=== PATIENT | female | born 1970 | race Caucasian/White ===

== ENCOUNTER → 2021-11-21 | Outpatient (CLI) | payer OTHER | LOC: MAMMO 09:14 | PROVIDERS: ATTEND Nurse Practitioner Adult Health | DX: N63.12 Unspecified lump in the right breast, upper inner quadrant (principal) | CPT/HCPCS: 77066 ==

== ENCOUNTER → 2021-11-28 | Outpatient (CLI) | payer OTHER ==
[~2021-11-28] MED LIST: LIDOCAINE HCL 1% LOCAL INJ 20 ML VIAL ONE
== END ==
LOC: US 09:29
PROVIDERS: ATTEND Internal Medicine
DX: N63.10 Unspecified lump in the right breast, unspecified quadrant (principal)
CPT/HCPCS: 88305; A4648; J2001

== ENCOUNTER → 2022-03-03 | Outpatient (CLI) | payer OTHER | LOC: RAD 11:06 | PROVIDERS: ATTEND Internal Medicine | DX: R05.9 Cough, unspecified (principal) | CPT/HCPCS: 71046 ==

== ENCOUNTER 2023-03-15 19:37 | Inpatient (IN) | payer OTHER ==
[~2023-03-15] VITALS: Ht 157.5 cm; Wt 94.8 kg
[2023-03-15] MEDS ORDERED: ACETAMINOPHEN 325 MG TAB PO ONE (20:00)
[2023-03-15] MEDS ORDERED: SODIUM CHLORIDE 0.9% 1000ML 1,000 ML IV ONE (20:00)
[2023-03-15 20:22] LABS: BASOPHILS % 0.2 % (0.0-1.0); EOSINOPHILS % 0.1 % (0.0-6.0); HEMOGLOBIN 8.4 g/dL (12.0-16.0); LYMPHOCYTES # (AUTO) 1.9 (1.0-3.2); LYMPHOCYTES % 18.3 % (18.0-39.1); MEAN CORPUSCULAR HEMOGLOBIN 24.2 pg (28-32); MEAN CORPUSCULAR VOLUME 80.7 fL (81-99); MONOCYTES % 10.1 % (4.4-11.3); NEUTROPHILS # (AUTO) 7.3 (2.1-6.9); NEUTROPHILS % 70.8 % (38.7-80.0); PLATELET COUNT 494 x10e3/uL (140-360); RED BLOOD COUNT 3.47 x10e6/uL (3.6-5.1); RED CELL DISTRIBUTION WIDTH 14.2 % (11.7-14.4)
[2023-03-15 20:38] LABS: ALBUMIN 2.2 g/dL (3.5-5.0); ALBUMIN/GLOBULIN RATIO 0.4 (0.8-2.0); ANION GAP 16.3 mmol/L (8-16); CALCIUM 9.3 mg/dL (8.4-10.2); CREATININE, SERUM 1.01 mg/dL (0.57-1.11); POTASSIUM 3.3 mmol/L (3.5-5.1)
[2023-03-15] MEDS ORDERED: IOPAMIDOL 370 MG/ML 100 ML INFUS..BTL INJ ONE (22:16)
[2023-03-15] MEDS: SODIUM CHLORIDE 0.9% 1000ML 1,000 ML IV SCH (23:15)
[2023-03-16] VITALS (16 sets, daily range): BP systolic 104–137; BP diastolic 57–85; PULSE 105–144; RESP 16–24; TEMP 97–101.3; O2SAT 90–100
[2023-03-16] MEDS: ALBUTEROL SULF 0.083% NEB SOLN 3 ML NEB NEB SCH ×4 (01:40→15:00)
[2023-03-16] MEDS: IPRATROPIUM BROMIDE 0.02% 2.5 ML NEB NEB SCH ×4 (01:40→15:00)
[2023-03-16 02:12] LABS: CLARITY,URINE CLOUDY (CLEAR); COLOR,URINE YELLOW (YELLOW); LEUKOCYTE ESTERASE ,URINE SMALL (NEGATIVE); NITRITE,URINE NEGATIVE (NEGATIVE)
[2023-03-16 02:13] LABS: KETONES,URINE NEGATIVE (NEGATIVE); PROTEIN,URINE DIPSTICK TRACE (NEGATIVE); URINE UROBILINOGEN 0.2 mg/dL (0.2 - 1)
[2023-03-16 02:18] LABS: BACTERIA,URINE MANY /HPF; EPITHELIAL CELLS,URINE MANY /LPF; RBC,URINE 21-50 /HPF (0-5); RENAL EPITHELIAL CELLS,URINE FEW; TRANSITIONAL EPI CELLS,URINE MANY; WBC,URINE (MAN) >50 /HPF (0-5)
[2023-03-16] MEDS: SODIUM CHLORIDE 0.9% 1000ML 1,000 ML IV SCH ×2 (07:15→12:53)
[2023-03-16] MEDS ORDERED: DEXTROSE 50% SYRINGE 50 ML IV PRN (07:15)
[2023-03-16 07:26] LABS: ALBUMIN/GLOBULIN RATIO 0.4 (0.8-2.0); ANION GAP 16.2 mmol/L (8-16); CALCIUM 8.8 mg/dL (8.4-10.2); CREATININE, SERUM 0.88 mg/dL (0.57-1.11); POTASSIUM 3.2 mmol/L (3.5-5.1)
[2023-03-16] MEDS: INSULIN LISPRO 100 UNIT/1 ML 3ML VIAL SQ SCH ×3 (07:30→16:30)
[2023-03-16] MEDS: PANTOPRAZOLE SOD 40 MG TABEC PO SCH ×2 (07:30→15:08)
[2023-03-16] MEDS ORDERED: ONDANSETRON HCL4 MG PO (08:20)
[2023-03-16] MEDS ORDERED: METOPROLOL TAR100 MG PO (08:20)
[2023-03-16] MEDS ORDERED: ZOLPIDEM PO (08:20)
[2023-03-16] MEDS ORDERED: GABAPENTIN300 MG PO (08:20)
[2023-03-16] MEDS ORDERED: AMBIEN10 MG PO (08:20)
[2023-03-16] MEDS ORDERED: ALPRAZOLAM1 MG PO (08:20)
[2023-03-16] MEDS ORDERED: ACETAMINOPHEN/CODEINE 300MG - 30MG TAB PO PRN (11:00)
[2023-03-16] MEDS: HYDROCODONE/APAP 5MG-325MG TAB PO PRN ×2 (11:02→21:08)
[2023-03-16] MEDS: POTASSIUM CHLORIDE 20 MEQ TAB CR PO PRN (12:51)
[2023-03-16] MEDS: CELECOXIB 100 MG CAP PO SCH (12:51)
[2023-03-16] MEDS ORDERED: LEVALBUTEROL HCL SOLN NEBU 0.63 MG/3 ML NEB INH PRN (17:45)
[2023-03-16] MEDS ORDERED: HEPARIN SOD (PORCINE) 5,000 UNIT/ML VIAL SC SCH (21:00)
[2023-03-16] MEDS ORDERED: INSULIN GLARGINE 100 UNITS/ML VIAL SQ SCH (21:00)
[2023-03-17] VITALS (51 sets, daily range): BP systolic 91–155; BP diastolic 53–104; PULSE 33–188; RESP 18–42; TEMP 97.7–102.5; O2SAT 92–100
[2023-03-17] MEDS: SODIUM CHLORIDE 0.9% 1000ML 1,000 ML IV SCH ×2 (02:20→22:22)
[2023-03-17] MEDS: INSULIN LISPRO 100 UNIT/1 ML 3ML VIAL SQ SCH ×5 (05:07→21:36)
[2023-03-17 05:21] LABS: BASOPHILS % 0.4 % (0.0-1.0); EOSINOPHILS # (AUTO) 0.1 (0.0-0.4); EOSINOPHILS % 1.8 % (0.0-6.0); HEMATOCRIT 22.9 % (34.2-44.1); LYMPHOCYTES # (AUTO) 1.4 (1.0-3.2); LYMPHOCYTES % 25.9 % (18.0-39.1); MEAN CORPUSCULAR HEMOGLOBIN 24.1 pg (28-32); MEAN CORPUSCULAR HGB CONC 28.8 g/dL (31-35); MEAN CORPUSCULAR VOLUME 83.6 fL (81-99); MONOCYTES # (AUTO) 0.6 (0.2-0.8); MONOCYTES % 10.2 % (4.4-11.3); NEUTROPHILS # (AUTO) 3.4 (2.1-6.9); NEUTROPHILS % 61.2 % (38.7-80.0); PLATELET COUNT 517 x10e3/uL (140-360); RED BLOOD COUNT 2.74 x10e6/uL (3.6-5.1); RED CELL DISTRIBUTION WIDTH 14.6 % (11.7-14.4)
[2023-03-17 05:39] LABS: HEMOGLOBIN 6.6 g/dL (12.0-16.0)
[2023-03-17 05:54] LABS: ANION GAP 12.4 mmol/L (8-16); CREATININE, SERUM 0.77 mg/dL (0.57-1.11); POTASSIUM 3.4 mmol/L (3.5-5.1)
[2023-03-17] MEDS ORDERED: SODIUM CHLORIDE 0.9% 250ML 250 ML IV ONE (06:30)
[2023-03-17] MEDS ORDERED: DIGOXIN INJ 0.25 MG/ML 2 ML AMP IV ONE ×2 (07:00→08:30)
[2023-03-17] MEDS ORDERED: AMIODARONE HCL 150 MG/100 ML BAG IV ONE (08:30)
[2023-03-17] MEDS ORDERED: AMIODARONE 900MG 500 ML IV SCH (08:40)
[2023-03-17] MEDS: PANTOPRAZOLE SOD 40 MG TABEC PO SCH (08:45)
[2023-03-17] MEDS: CELECOXIB 100 MG CAP PO SCH (08:45)
[2023-03-17] MEDS: HYDROCODONE/APAP 5MG-325MG TAB PO PRN ×2 (08:53→15:36)
[2023-03-17] MEDS: ALPRAZOLAM 1 MG TAB PO PRN ×2 (09:09→21:44)
[2023-03-17] MEDS: ENOXAPARIN SODIUM INJ 100 MG/ML SYR SC SCH ×2 (10:34→21:32)
[2023-03-17] MEDS ORDERED: METOCLOPRAMIDE HCL 10 MG/2ML VIAL ONE (12:51)
[2023-03-17] MEDS ORDERED: PROPOFOL IV EMULSION 10 MG/ML 20 ML VIAL ONE (12:51)
[2023-03-17] MEDS ORDERED: LIDOCAINE HCL 2% LOCAL INJ 5 ML SDV VIAL INJ ONE (12:51)
[2023-03-17] MEDS ORDERED: FENTANYL CITRATE/PF 100MCG/2 ML INJ ONE (13:16)
[2023-03-17] MEDS: POTASSIUM CHLORIDE 20 MEQ TAB CR PO PRN (13:27)
[2023-03-17] MEDS ORDERED: SODIUM CHLORIDE 0.9% 250ML 250 ML ONE (13:57)
[2023-03-17] MEDS: INSULIN GLARGINE 100 UNITS/ML VIAL SQ SCH (21:37)
[2023-03-17 22:07] LABS: HEMOGLOBIN 10.3 g/dL (12.0-16.0)
[2023-03-17] MEDS: ACETAMINOPHEN 325 MG TAB PO PRN (22:52)
[2023-03-18] VITALS (75 sets, daily range): BP systolic 99–182; BP diastolic 55–121; PULSE 91–127; RESP 15–52; TEMP 97.8–102.3; O2SAT 92–100
[2023-03-18 00:21] LABS: TOTAL IRON BINDING CAPACITY 214 ug/dL (261-478); TRANSFERRIN 153 mg/dL (180-382)
[2023-03-18 01:16] LABS: % IRON SATURATION 7 % (15-50); IRON 15 ug/dL (50-170)
[2023-03-18] MEDS: ACETAMINOPHEN 325 MG TAB PO PRN ×3 (03:06→23:56)
[2023-03-18] MEDS: HYDROCODONE/APAP 5MG-325MG TAB PO PRN ×2 (05:43→20:22)
[2023-03-18 06:28] LABS: BASOPHILS % 0.3 % (0.0-1.0); EOSINOPHILS # (AUTO) 0.1 (0.0-0.4); EOSINOPHILS % 0.8 % (0.0-6.0); HEMATOCRIT 32.1 % (34.2-44.1); LYMPHOCYTES # (AUTO) 1.2 (1.0-3.2); LYMPHOCYTES % 15.5 % (18.0-39.1); MEAN CORPUSCULAR HEMOGLOBIN 25.7 pg (28-32); MEAN CORPUSCULAR HGB CONC 31.2 g/dL (31-35); MEAN CORPUSCULAR VOLUME 82.5 fL (81-99); MONOCYTES # (AUTO) 0.7 (0.2-0.8); NEUTROPHILS # (AUTO) 5.7 (2.1-6.9); PLATELET COUNT 429 x10e3/uL (140-360); RED BLOOD COUNT 3.89 x10e6/uL (3.6-5.1); RED CELL DISTRIBUTION WIDTH 15.2 % (11.7-14.4)
[2023-03-18 06:43] LABS: INR 1.15; PROTHROMBIN TIME 15.2 seconds (11.9-14.5)
[2023-03-18 06:44] LABS: PARTIAL THROMBOPLASTIN TIME 46.8 seconds (23.8-35.5)
[2023-03-18 06:52] LABS: ANION GAP 12.6 mmol/L (8-16); CALCIUM 8.1 mg/dL (8.4-10.2); CREATININE, SERUM 0.88 mg/dL (0.57-1.11); POTASSIUM 3.6 mmol/L (3.5-5.1)
[2023-03-18] MEDS: INSULIN LISPRO 100 UNIT/1 ML 3ML VIAL SQ SCH ×4 (07:30→20:37)
[2023-03-18] MEDS: SODIUM CHLORIDE 0.9% 1000ML 1,000 ML IV SCH ×3 (08:20→18:20)
[2023-03-18] MEDS: ENOXAPARIN SODIUM INJ 100 MG/ML SYR SC SCH ×2 (09:00→20:21)
[2023-03-18] MEDS: AMIODARONE HCL 200 MG TAB PO SCH (10:33)
[2023-03-18] MEDS: IRON SUCROSE 100 MG in SODIUM CHLORIDE 0.9% 100 ML IV SCH (10:48)
[2023-03-18] MEDS: ALPRAZOLAM 1 MG TAB PO PRN ×2 (15:54→23:22)
[2023-03-18] MEDS: SUCRALFATE 1 GM TAB PO SCH ×2 (20:22→21:00)
[2023-03-18] MEDS: INSULIN GLARGINE 100 UNITS/ML VIAL SQ SCH (20:34)
[2023-03-19] VITALS (27 sets, daily range): BP systolic 102–167; BP diastolic 59–89; PULSE 94–123; RESP 15–42; TEMP 98.8–102.3; O2SAT 93–100
[2023-03-19] MEDS: HYDROCODONE/APAP 5MG-325MG TAB PO PRN ×2 (03:40→10:05)
[2023-03-19] MEDS: SODIUM CHLORIDE 0.9% 1000ML 1,000 ML IV SCH (05:04)
[2023-03-19] MEDS: INSULIN LISPRO 100 UNIT/1 ML 3ML VIAL SQ SCH ×4 (07:30→20:12)
[2023-03-19] MEDS: SUCRALFATE 1 GM TAB PO SCH ×4 (08:24→20:00)
[2023-03-19 08:32] LABS: BASOPHILS % 0.4 % (0.0-1.0); EOSINOPHILS # (AUTO) 0.1 (0.0-0.4); EOSINOPHILS % 0.7 % (0.0-6.0); HEMATOCRIT 34.4 % (34.2-44.1); HEMOGLOBIN 10.2 g/dL (12.0-16.0); LYMPHOCYTES # (AUTO) 1.5 (1.0-3.2); LYMPHOCYTES % 14.7 % (18.0-39.1); MEAN CORPUSCULAR HEMOGLOBIN 25.2 pg (28-32); MEAN CORPUSCULAR HGB CONC 29.7 g/dL (31-35); MEAN CORPUSCULAR VOLUME 84.9 fL (81-99); MONOCYTES % 9.1 % (4.4-11.3); NEUTROPHILS # (AUTO) 7.7 (2.1-6.9); NEUTROPHILS % 74.4 % (38.7-80.0); PLATELET COUNT 506 x10e3/uL (140-360); RED BLOOD COUNT 4.05 x10e6/uL (3.6-5.1); RED CELL DISTRIBUTION WIDTH 15.7 % (11.7-14.4)
[2023-03-19 08:52] LABS: ANION GAP 14.1 mmol/L (8-16); BLOOD UREA NITROGEN < 5 mg/dL (7-26); CALCIUM 8.6 mg/dL (8.4-10.2); CARBON DIOXIDE 25 mmol/L (22-29); CHLORIDE 104 mmol/L (98-107); CREATININE, SERUM 0.66 mg/dL (0.57-1.11); GLUCOSE 87 mg/dL (74-118); POTASSIUM 3.1 mmol/L (3.5-5.1); SODIUM 140 mmol/L (136-145)
[2023-03-19 08:55] LABS: BUN/CREATININE RATIO 8 (6-25)
[2023-03-19] MEDS: IRON SUCROSE 100 MG in SODIUM CHLORIDE 0.9% 100 ML IV SCH (09:46)
[2023-03-19] MEDS: AMIODARONE HCL 200 MG TAB PO SCH (09:46)
[2023-03-19] MEDS: ENOXAPARIN SODIUM INJ 100 MG/ML SYR SC SCH (09:46)
[2023-03-19] MEDS: ALPRAZOLAM 1 MG TAB PO PRN ×2 (10:40→20:01)
[2023-03-19] MEDS: POTASSIUM CHLORIDE 20 MEQ TAB CR PO PRN (10:47)
[2023-03-19] MEDS ORDERED: METOPROLOL TARTRATE 25 MG TAB PO SCH ×2 (11:45→17:45)
[2023-03-19] MEDS ORDERED: POTASSIUM CHLORIDE 10MEQ EA PO ONE (15:00)
[2023-03-19] MEDS: HYDROCODONE/APAP 7.5MG-325MG 1 EA TAB PO PRN ×2 (15:52→20:00)
[2023-03-19] MEDS ORDERED: FUROSEMIDE INJ 10 MG/ML 4 ML VIAL IV ONE (16:00)
[2023-03-19] MEDS: Clindamycin INJ 300 MG/50 ML 50 ML IV SCH ×2 (16:57→20:02)
[2023-03-19] MEDS: ACETAMINOPHEN 325 MG TAB PO PRN (20:01)
[2023-03-19] MEDS: INSULIN GLARGINE 100 UNITS/ML VIAL SQ SCH (20:11)
[2023-03-20] VITALS (19 sets, daily range): BP systolic 108–156; BP diastolic 54–87; PULSE 93–136; RESP 18–30; TEMP 99.3–102.4; O2SAT 93–100
[2023-03-20] MEDS: Clindamycin INJ 300 MG/50 ML 50 ML IV SCH ×3 (04:09→16:28)
[2023-03-20] MEDS: HYDROCODONE/APAP 7.5MG-325MG 1 EA TAB PO PRN ×3 (04:48→21:41)
[2023-03-20] MEDS: ALPRAZOLAM 1 MG TAB PO PRN ×3 (04:48→21:37)
[2023-03-20] MEDS: INSULIN LISPRO 100 UNIT/1 ML 3ML VIAL SQ SCH ×4 (07:30→21:36)
[2023-03-20] MEDS: SUCRALFATE 1 GM TAB PO SCH ×4 (07:30→21:38)
[2023-03-20 08:05] LABS: BASOPHILS % 0.4 % (0.0-1.0); EOSINOPHILS # (AUTO) 0.1 (0.0-0.4); EOSINOPHILS % 1.1 % (0.0-6.0); HEMATOCRIT 29.7 % (34.2-44.1); HEMOGLOBIN 9.2 g/dL (12.0-16.0); LYMPHOCYTES # (AUTO) 1.1 (1.0-3.2); MEAN CORPUSCULAR VOLUME 83.9 fL (81-99); MONOCYTES # (AUTO) 1.1 (0.2-0.8); MONOCYTES % 11.7 % (4.4-11.3); NEUTROPHILS # (AUTO) 6.8 (2.1-6.9); NEUTROPHILS % 74.1 % (38.7-80.0); PLATELET COUNT 440 x10e3/uL (140-360); RED BLOOD COUNT 3.54 x10e6/uL (3.6-5.1); RED CELL DISTRIBUTION WIDTH 16.2 % (11.7-14.4)
[2023-03-20] MEDS ORDERED: LIDOCAINE HCL 1% LOCAL INJ 20 ML VIAL ONE (08:23)
[2023-03-20 08:28] LABS: ALBUMIN 1.6 g/dL (3.5-5.0); ALBUMIN/GLOBULIN RATIO 0.4 (0.8-2.0); ANION GAP 12.9 mmol/L (8-16); CALCIUM 8.4 mg/dL (8.4-10.2); CREATININE, SERUM 0.62 mg/dL (0.57-1.11); POTASSIUM 3.9 mmol/L (3.5-5.1)
[2023-03-20] MEDS: IRON SUCROSE 100 MG in SODIUM CHLORIDE 0.9% 100 ML IV SCH (08:45)
[2023-03-20] MEDS ORDERED: MIDAZOLAM HCL 2 MG/2 ML VIAL ONE (11:09)
[2023-03-20] MEDS ORDERED: FENTANYL CITRATE/PF 100MCG/2 ML INJ ONE (11:10)
[2023-03-20] MEDS ORDERED: SODIUM CHLORIDE 0.9% 250ML 250 ML ONE (11:10)
[2023-03-20] MEDS: AMIODARONE HCL 200 MG TAB PO SCH (13:08)
[2023-03-20] MEDS: METOPROLOL TARTRATE 50 MG TAB PO SCH ×2 (13:09→16:27)
[2023-03-20] MEDS: POLYETHYLENE GLYCOL 3350 17 GM PACK PO SCH (16:28)
[2023-03-20] MEDS ORDERED: FUROSEMIDE INJ 10 MG/ML 4 ML VIAL IV ONE (17:45)
[2023-03-20] MEDS: ZOLPIDEM TARTRATE 5 MG TAB PO PRN (21:37)
[2023-03-20] MEDS: INSULIN GLARGINE 100 UNITS/ML VIAL SQ SCH (21:44)
[2023-03-21] VITALS (10 sets, daily range): BP systolic 104–114; BP diastolic 59–68; PULSE 80–105; RESP 16–22; TEMP 97.9–99.6; O2SAT 94–100
[2023-03-21] MEDS: HYDROCODONE/APAP 7.5MG-325MG 1 EA TAB PO PRN ×5 (04:43→23:36)
[2023-03-21] MEDS: ALPRAZOLAM 1 MG TAB PO PRN ×2 (05:16→20:40)
[2023-03-21] MEDS: INSULIN LISPRO 100 UNIT/1 ML 3ML VIAL SQ SCH ×4 (07:30→20:52)
[2023-03-21] MEDS: POLYETHYLENE GLYCOL 3350 17 GM PACK PO SCH (09:19)
[2023-03-21] MEDS: AMIODARONE HCL 200 MG TAB PO SCH (09:19)
[2023-03-21] MEDS: METOPROLOL TARTRATE 50 MG TAB PO SCH ×2 (09:19→17:16)
[2023-03-21] MEDS: SUCRALFATE 1 GM TAB PO SCH ×4 (09:19→20:39)
[2023-03-21] MEDS ORDERED: SODIUM CHLORIDE 0.9% 100 ML ONE (09:26)
[2023-03-21] MEDS: IRON SUCROSE 100 MG in SODIUM CHLORIDE 0.9% 100 ML IV SCH (11:48)
[2023-03-21] MEDS: ENOXAPARIN INJ 80 MG/0.8 ML SYR SC SCH ×2 (11:48→20:39)
[2023-03-21] MEDS: ZOLPIDEM TARTRATE 5 MG TAB PO PRN (20:40)
[2023-03-21] MEDS: INSULIN GLARGINE 100 UNITS/ML VIAL SQ SCH (20:54)
[2023-03-22] VITALS (9 sets, daily range): BP systolic 116–156; BP diastolic 61–94; PULSE 94–122; RESP 18–22; TEMP 98–100.1; O2SAT 93–100
[2023-03-22] MEDS: HYDROCODONE/APAP 7.5MG-325MG 1 EA TAB PO PRN ×5 (04:40→20:24)
[2023-03-22] MEDS: ALPRAZOLAM 1 MG TAB PO PRN ×3 (04:52→20:24)
[2023-03-22 04:56] LABS: BASOPHILS % 0.3 % (0.0-1.0); EOSINOPHILS # (AUTO) 0.1 (0.0-0.4); EOSINOPHILS % 2.1 % (0.0-6.0); HEMATOCRIT 30.3 % (34.2-44.1); HEMOGLOBIN 8.9 g/dL (12.0-16.0); LYMPHOCYTES # (AUTO) 1.2 (1.0-3.2); LYMPHOCYTES % 19.3 % (18.0-39.1); MEAN CORPUSCULAR HGB CONC 29.4 g/dL (31-35); MEAN CORPUSCULAR VOLUME 85.1 fL (81-99); MONOCYTES # (AUTO) 0.9 (0.2-0.8); MONOCYTES % 13.8 % (4.4-11.3); NEUTROPHILS % 64.2 % (38.7-80.0); PLATELET COUNT 484 x10e3/uL (140-360); RED BLOOD COUNT 3.56 x10e6/uL (3.6-5.1); RED CELL DISTRIBUTION WIDTH 16.9 % (11.7-14.4)
[2023-03-22 05:23] LABS: ALBUMIN 1.6 g/dL (3.5-5.0); ALBUMIN/GLOBULIN RATIO 0.4 (0.8-2.0); ANION GAP 14.6 mmol/L (8-16); CALCIUM 8.1 mg/dL (8.4-10.2); CREATININE, SERUM 0.77 mg/dL (0.57-1.11); POTASSIUM 3.6 mmol/L (3.5-5.1)
[2023-03-22] MEDS: INSULIN LISPRO 100 UNIT/1 ML 3ML VIAL SQ SCH ×5 (07:30→21:00)
[2023-03-22] MEDS: POLYETHYLENE GLYCOL 3350 17 GM PACK PO SCH (08:20)
[2023-03-22] MEDS: AMIODARONE HCL 200 MG TAB PO SCH (08:20)
[2023-03-22] MEDS: ENOXAPARIN INJ 80 MG/0.8 ML SYR SC SCH ×2 (08:21→20:25)
[2023-03-22] MEDS: SUCRALFATE 1 GM TAB PO SCH ×4 (08:21→20:24)
[2023-03-22] MEDS: METOPROLOL TARTRATE 50 MG TAB PO SCH ×2 (08:21→16:59)
[2023-03-22] MEDS: IRON SUCROSE 100 MG in SODIUM CHLORIDE 0.9% 100 ML IV SCH (08:21)
[2023-03-22] MEDS: ZOLPIDEM TARTRATE 5 MG TAB PO PRN (20:25)
[2023-03-22] MEDS: INSULIN GLARGINE 100 UNITS/ML VIAL SQ SCH (20:38)
[2023-03-23] VITALS (9 sets, daily range): BP systolic 108–135; BP diastolic 56–79; PULSE 93–112; RESP 17–24; TEMP 98.8–100; O2SAT 93–100
[2023-03-23] MEDS: HYDROCODONE/APAP 7.5MG-325MG 1 EA TAB PO PRN ×5 (01:35→20:54)
[2023-03-23] MEDS: ALPRAZOLAM 1 MG TAB PO PRN ×3 (05:30→20:54)
[2023-03-23] MEDS: INSULIN LISPRO 100 UNIT/1 ML 3ML VIAL SQ SCH ×4 (07:30→20:55)
[2023-03-23] MEDS: SUCRALFATE 1 GM TAB PO SCH ×4 (08:06→20:53)
[2023-03-23] MEDS: ENOXAPARIN INJ 80 MG/0.8 ML SYR SC SCH ×2 (08:41→20:54)
[2023-03-23] MEDS: FLUCONAZOLE 100 MG TAB PO SCH (08:41)
[2023-03-23] MEDS: METOPROLOL TARTRATE 50 MG TAB PO SCH ×2 (08:42→17:03)
[2023-03-23] MEDS: POLYETHYLENE GLYCOL 3350 17 GM PACK PO SCH (08:42)
[2023-03-23] MEDS: AMIODARONE HCL 200 MG TAB PO SCH (08:42)
[2023-03-23] MEDS: ACETAMINOPHEN 325 MG TAB PO PRN (17:02)
[2023-03-23] MEDS: INSULIN GLARGINE 100 UNITS/ML VIAL SQ SCH (20:59)
[2023-03-24] VITALS (10 sets, daily range): BP systolic 109–133; BP diastolic 48–77; PULSE 93–122; RESP 20–22; TEMP 98.5–101.2; O2SAT 93–99
[2023-03-24] MEDS: HYDROCODONE/APAP 7.5MG-325MG 1 EA TAB PO PRN ×5 (02:39→20:54)
[2023-03-24 05:17] LABS: BASOPHILS % 0.4 % (0.0-1.0); EOSINOPHILS # (AUTO) 0.1 (0.0-0.4); EOSINOPHILS % 1.2 % (0.0-6.0); HEMATOCRIT 27.2 % (34.2-44.1); HEMOGLOBIN 8.1 g/dL (12.0-16.0); LYMPHOCYTES # (AUTO) 1.1 (1.0-3.2); LYMPHOCYTES % 14.7 % (18.0-39.1); MEAN CORPUSCULAR HEMOGLOBIN 25.2 pg (28-32); MEAN CORPUSCULAR HGB CONC 29.8 g/dL (31-35); MEAN CORPUSCULAR VOLUME 84.7 fL (81-99); MONOCYTES # (AUTO) 0.8 (0.2-0.8); MONOCYTES % 10.7 % (4.4-11.3); NEUTROPHILS # (AUTO) 5.5 (2.1-6.9); NEUTROPHILS % 72.2 % (38.7-80.0); PLATELET COUNT 455 x10e3/uL (140-360); RED BLOOD COUNT 3.21 x10e6/uL (3.6-5.1); RED CELL DISTRIBUTION WIDTH 16.9 % (11.7-14.4)
[2023-03-24 05:42] LABS: ALBUMIN 1.5 g/dL (3.5-5.0); ALBUMIN/GLOBULIN RATIO 0.4 (0.8-2.0); ANION GAP 16.6 mmol/L (8-16); CALCIUM 8.3 mg/dL (8.4-10.2); CREATININE, SERUM 0.71 mg/dL (0.57-1.11); MAGNESIUM 1.6 MG/DL (1.3-2.1); POTASSIUM 3.6 mmol/L (3.5-5.1)
[2023-03-24] MEDS: INSULIN LISPRO 100 UNIT/1 ML 3ML VIAL SQ SCH ×4 (07:30→20:51)
[2023-03-24] MEDS: SUCRALFATE 1 GM TAB PO SCH ×4 (08:31→20:54)
[2023-03-24] MEDS: POLYETHYLENE GLYCOL 3350 17 GM PACK PO SCH (09:00)
[2023-03-24] MEDS: FLUCONAZOLE 100 MG TAB PO SCH (09:09)
[2023-03-24] MEDS: AMIODARONE HCL 200 MG TAB PO SCH (09:09)
[2023-03-24] MEDS: ENOXAPARIN INJ 80 MG/0.8 ML SYR SC SCH ×2 (09:09→20:53)
[2023-03-24] MEDS: METOPROLOL TARTRATE 50 MG TAB PO SCH ×2 (09:10→17:01)
[2023-03-24] MEDS ORDERED: FUROSEMIDE INJ 10 MG/ML 4 ML VIAL IV ONE (13:35)
[2023-03-24] MEDS: ALPRAZOLAM 1 MG TAB PO PRN ×2 (17:12→20:54)
[2023-03-24] MEDS: ACETAMINOPHEN 325 MG TAB PO PRN (20:55)
[2023-03-24] MEDS: INSULIN GLARGINE 100 UNITS/ML VIAL SQ SCH (21:02)
[2023-03-25] VITALS (10 sets, daily range): BP systolic 106–137; BP diastolic 59–69; PULSE 16–103; RESP 18–24; TEMP 97.7–100.6; O2SAT 94–100
[2023-03-25] MEDS: HYDROCODONE/APAP 7.5MG-325MG 1 EA TAB PO PRN ×6 (01:08→21:08)
[2023-03-25 04:55] LABS: BASOPHILS % 0.3 % (0.0-1.0); EOSINOPHILS # (AUTO) 0.1 (0.0-0.4); EOSINOPHILS % 0.7 % (0.0-6.0); HEMATOCRIT 28.5 % (34.2-44.1); HEMOGLOBIN 8.2 g/dL (12.0-16.0); LYMPHOCYTES # (AUTO) 1.6 (1.0-3.2); LYMPHOCYTES % 22.9 % (18.0-39.1); MEAN CORPUSCULAR HEMOGLOBIN 25.1 pg (28-32); MEAN CORPUSCULAR HGB CONC 28.8 g/dL (31-35); MEAN CORPUSCULAR VOLUME 87.2 fL (81-99); MONOCYTES # (AUTO) 0.8 (0.2-0.8); MONOCYTES % 11.3 % (4.4-11.3); NEUTROPHILS # (AUTO) 4.5 (2.1-6.9); NEUTROPHILS % 64.1 % (38.7-80.0); PLATELET COUNT 475 x10e3/uL (140-360); RED BLOOD COUNT 3.27 x10e6/uL (3.6-5.1); RED CELL DISTRIBUTION WIDTH 16.8 % (11.7-14.4)
[2023-03-25 05:12] LABS: ALBUMIN 1.7 g/dL (3.5-5.0); ALBUMIN/GLOBULIN RATIO 0.4 (0.8-2.0); ANION GAP 14.4 mmol/L (8-16); CALCIUM 8.6 mg/dL (8.4-10.2); CREATININE, SERUM 0.74 mg/dL (0.57-1.11); POTASSIUM 3.4 mmol/L (3.5-5.1)
[2023-03-25 06:53] LABS: LYMPHOCYTES % (MANUAL) 18 % (19-48); MONOCYTES % (MANUAL) 16 % (3.4-9.0); NEUTROPHILS % (MANUAL) 63 % (40-74); PLATELET ESTIMATE ADEQUATE; PLATELET MORPHOLOGY COMMENT NORMAL; RBC MORPHOLOGY COMMENT NORMAL
[2023-03-25] MEDS: INSULIN LISPRO 100 UNIT/1 ML 3ML VIAL SQ SCH ×4 (07:30→21:19)
[2023-03-25] MEDS: SUCRALFATE 1 GM TAB PO SCH ×4 (08:30→21:08)
[2023-03-25] MEDS: ENOXAPARIN INJ 80 MG/0.8 ML SYR SC SCH ×2 (09:00→21:09)
[2023-03-25] MEDS: IRON-VITAMIN-MINERAL CAPSULE PO SCH ×2 (09:00→17:46)
[2023-03-25] MEDS: POLYETHYLENE GLYCOL 3350 17 GM PACK PO SCH (09:00)
[2023-03-25] MEDS: FLUCONAZOLE 100 MG TAB PO SCH (09:44)
[2023-03-25] MEDS: AMIODARONE HCL 200 MG TAB PO SCH (09:48)
[2023-03-25] MEDS: METOPROLOL TARTRATE 50 MG TAB PO SCH ×2 (09:49→17:45)
[2023-03-25] MEDS: ALPRAZOLAM 1 MG TAB PO PRN ×2 (11:02→17:45)
[2023-03-25] MEDS: INSULIN GLARGINE 100 UNITS/ML VIAL SQ SCH (21:19)
[2023-03-25] MEDS: ACETAMINOPHEN 325 MG TAB PO PRN (23:53)
[2023-03-26] VITALS: BP 118/61; PULSE 99; RESP 17; TEMP 101.1; O2SAT 96
[2023-03-26] MEDS: HYDROCODONE/APAP 7.5MG-325MG 1 EA TAB PO PRN (03:08)
[2023-03-26 04:00] VITALS: BP 128/65; PULSE 60; RESP 18; TEMP 98.6; O2SAT 95
[2023-03-26 04:51] LABS: BASOPHILS % 0.4 % (0.0-1.0); EOSINOPHILS # (AUTO) 0.1 (0.0-0.4); EOSINOPHILS % 1.3 % (0.0-6.0); HEMATOCRIT 27.5 % (34.2-44.1); LYMPHOCYTES # (AUTO) 1.8 (1.0-3.2); LYMPHOCYTES % 24.9 % (18.0-39.1); MEAN CORPUSCULAR HEMOGLOBIN 25.1 pg (28-32); MEAN CORPUSCULAR HGB CONC 29.1 g/dL (31-35); MEAN CORPUSCULAR VOLUME 86.2 fL (81-99); MONOCYTES # (AUTO) 0.9 (0.2-0.8); MONOCYTES % 12.4 % (4.4-11.3); NEUTROPHILS # (AUTO) 4.3 (2.1-6.9); NEUTROPHILS % 60.4 % (38.7-80.0); PLATELET COUNT 532 x10e3/uL (140-360); RED BLOOD COUNT 3.19 x10e6/uL (3.6-5.1); RED CELL DISTRIBUTION WIDTH 16.9 % (11.7-14.4)
[2023-03-26 05:09] LABS: ALBUMIN 1.6 g/dL (3.5-5.0); ALBUMIN/GLOBULIN RATIO 0.4 (0.8-2.0); ANION GAP 13.2 mmol/L (8-16); CALCIUM 8.4 mg/dL (8.4-10.2); CREATININE, SERUM 0.67 mg/dL (0.57-1.11); POTASSIUM 3.2 mmol/L (3.5-5.1)
[2023-03-26] MEDS: INSULIN LISPRO 100 UNIT/1 ML 3ML VIAL SQ SCH (07:30)
[2023-03-26 08:19] VITALS: BP 123/58; PULSE 88; RESP 20; TEMP 98.1; O2SAT 99
[2023-03-26] MEDS ORDERED: FUROSEMIDE 40 MG TAB PO SCH (09:00)
[2023-03-26] MEDS: POLYETHYLENE GLYCOL 3350 17 GM PACK PO SCH (09:00)
[2023-03-26] MEDS: SUCRALFATE 1 GM TAB PO SCH (10:30)
[2023-03-26] MEDS: FLUCONAZOLE 100 MG TAB PO SCH (10:38)
[2023-03-26] MEDS: METOPROLOL TARTRATE 50 MG TAB PO SCH (10:39)
[2023-03-26] MEDS: IRON-VITAMIN-MINERAL CAPSULE PO SCH (10:39)
[2023-03-26] MEDS: AMIODARONE HCL 200 MG TAB PO SCH (10:40)
[2023-03-26] MEDS: ENOXAPARIN INJ 80 MG/0.8 ML SYR SC SCH (10:49)
[2023-03-26] MEDS ORDERED: POTASSIUM CHLORIDE 20 MEQ TAB CR PO STA (11:53)
[2023-03-26 12:10] VITALS: BP 145/77; PULSE 102; RESP 22; TEMP 99; O2SAT 96
[2023-03-26] MEDS ORDERED: APIXABAN 5 MG TABLET PO ONE (12:30)
== END 2023-03-26 12:45 | disposition home or self-care (01) | DRG 180 ==
LOC: ER 19:47 → ERHOLD 23:18 → MED/SURG 03-16 01:05 → ICU 03-17 10:54 → MED/SURG2 03-20 20:05
PROVIDERS: ADMIT Internal Medicine; ATTEND Internal Medicine
PROC: 30233N1 Transfusion of Nonautologous Red Blood Cells into Peripheral Vein, Percutaneous Approach (ICD-10-PCS; 2023-03-17)
PROC: 0DD58ZX Extraction of Esophagus, Via Natural or Artificial Opening Endoscopic, Diagnostic (ICD-10-PCS; 2023-03-18)
PROC: 0DB68ZX Excision of Stomach, Via Natural or Artificial Opening Endoscopic, Diagnostic (ICD-10-PCS; principal; 2023-03-18 14:28)
PROC: 0JB63ZX Excision of Chest Subcutaneous Tissue and Fascia, Percutaneous Approach, Diagnostic (ICD-10-PCS; 2023-03-20)
PROC: 0WB83ZX Excision of Chest Wall, Percutaneous Approach, Diagnostic (ICD-10-PCS; 2023-03-20)
PROC: 02HV33Z Insertion of Infusion Device into Superior Vena Cava, Percutaneous Approach (ICD-10-PCS; 2023-03-20)
DX: C78.02 Secondary malignant neoplasm of left lung (principal); J18.9 Pneumonia, unspecified organism; J96.01 Acute respiratory failure with hypoxia; J98.59 Other diseases of mediastinum, not elsewhere classified; R65.10 Systemic inflammatory response syndrome (SIRS) of non-infectious origin without acute organ dysfunction; C79.51 Secondary malignant neoplasm of bone; I82.611 Acute embolism and thrombosis of superficial veins of right upper extremity; C50.919 Malignant neoplasm of unspecified site of unspecified female breast; C78.01 Secondary malignant neoplasm of right lung; I48.0 Paroxysmal atrial fibrillation; R00.0 Tachycardia, unspecified; K25.9 Gastric ulcer, unspecified as acute or chronic, without hemorrhage or perforation; K31.7 Polyp of stomach and duodenum; D50.9 Iron deficiency anemia, unspecified; D75.838 Other thrombocytosis; K59.00 Constipation, unspecified; E66.9 Obesity, unspecified; Z68.38 Body mass index [BMI] 38.0-38.9, adult; E11.40 Type 2 diabetes mellitus with diabetic neuropathy, unspecified; R50.9 Fever, unspecified; Z20.822 Contact with and (suspected) exposure to COVID-19; Z88.2 Allergy status to sulfonamides; Z79.01 Long term (current) use of anticoagulants; Z85.3 Personal history of malignant neoplasm of breast; Z92.21 Personal history of antineoplastic chemotherapy; Z92.3 Personal history of irradiation; Z87.891 Personal history of nicotine dependence
CPT/HCPCS: 20206; 36415; 36569; 36600; 43239; 71045; 71046; 71260; 74470; 76770; 76830; 76856; 76857; 77012; 78306; 80048; 80053; 81001; 82105; 82270; 82378; 82550; 82553; 82607; 82728; 82746; 82948; 83036; 83540; 83605; 83735; 84466; 84484; 85014; 85018; 85025; 85045; 85610; 85730; 86301; 86304; 86850; 86900; 86920; 87040; 87086; 87106; 87205; 88112; 88300; 88304; 88305; 88312; 88342; 93005; 93306; 93971; 94640; 94660; 94799; 96361; 99152; 99284; A9503; J0696; J1160; J1644; J1650; J1756; J1815; J1940; J2001; J2250; J2543; J2765; J7030; J7050; P9016; Q9967